=== PATIENT | female | born 1955 | race Caucasian/White ===

== ENCOUNTER → 2017-01-15 | Outpatient (CLI) | payer OTHER | END | disposition home or self-care (01) | LOC: LABWHC1 12:40 | PROVIDERS: ATTEND Internal Medicine | DX: E03.8 Other specified hypothyroidism (principal) | CPT/HCPCS: 36415; 84439; 84443; 84481; 86376; 86800 ==

== ENCOUNTER → 2017-07-11 | Outpatient (CLI) | payer OTHER ==
--- NOTE | 2017-07-11 12:17 | US ---
EXAMINATION TYPE: US thyroid st tissue head/neck DATE OF EXAM: 07/11/2017 COMPARISON: None here CLINICAL HISTORY: 61-year-old female Multinodular Goiter Non-Toxic E04.2. follow up exam, previous at [facility], on meds TECHNIQUE: Multiple sonographic images of the thyroid gland are obtained. FINDINGS: GLAND SIZE: Right Lobe: 5.0 x 1.1 x 2.0 cm Overall Parenchyma: heterogenous Left Lobe: 4.5 x 2.2 x 2.5 cm Overall Parenchyma: heterogeneous Isthmus Thickness: 0.5 cm NODULES RIGHT: # of nodules measured on right: 1 1. 1.0 X 0.9 x 1.0 cm isoechoic nodule at the lower pole with well-defined margins. This nodule is taller than wide and shows intranodular vascularity. Prior size: No prior here, biopsied October 2016 = colloid nodule per patient LEFT: # of nodules measured on left: 1 1. 3.1 X 2.2 x 2.2 cm isoechoic nodule at the mid pole with well-defined margins. This nodule is w ider than tall and shows intranodular vascularity. Prior size: No prior here, biopsied October 2016 at [facility] = colloid per patient ISTHMUS: # of nodules measured in the isthmus: 0 Bilateral neck scanned, no evidence of lymphadenopathy. IMPRESSION: 1. Borderline thyromegaly. 2. A 3.1 cm solid nodule on the left and a 1.0 cm solid nodule on the right. The patient reports that these were previously biopsied on 11/09/2016. Prior imaging is not available for review.
[2017-07-11 12:26] LABS: T4, Free (Free Thyroxine) 1.11 ng/dL (0.78-2.19)
== END | disposition home or self-care (01) ==
LOC: RADUSWWP 10:52
PROVIDERS: ATTEND Internal Medicine
DX: E04.2 Nontoxic multinodular goiter (principal); E03.8 Other specified hypothyroidism
CPT/HCPCS: 36415; 76536; 84439; 84443; 84481

== ENCOUNTER → 2018-01-16 | Outpatient (CLI) | payer OTHER ==
[2018-01-16 14:39] LABS: T4, Free (Free Thyroxine) 1.07 ng/dL (0.78-2.19)
== END | disposition home or self-care (01) ==
LOC: LABWHC1 13:31
PROVIDERS: ATTEND Internal Medicine
DX: E03.8 Other specified hypothyroidism (principal)
CPT/HCPCS: 36415; 84439; 84443; 84481

== ENCOUNTER → 2018-08-29 | Outpatient (CLI) | payer OTHER ==
--- NOTE | 2018-08-29 11:34 | US ---
EXAMINATION TYPE: US thyroid st tissue head/neck DATE OF EXAM: 08/29/2018 COMPARISON: US 2018 CLINICAL HISTORY: E04.2 MULTINODULAR GOITER. Follow up thyroid nodules, history of FNA, patient on th yroid meds GLAND SIZE: Right Lobe: 4.4 x 1.2 x 1.4 cm Overall Parenchyma: homogenous Left Lobe: 3.9 x 2.0 x 2.1 cm Overall Parenchyma: homogeneous Isthmus Thickness: 0.4 cm NODULES RIGHT: # of nodules measured on right: 2 1. 1.1 X 0.8 x 1.1 cm hyperechoic solid nodule at the lower pole with well-defined margins. This no dule is wider than tall and shows intranodular vascularity. Prior size: 1.0 x 1.0 x 0.9 cm 2. 0.8 X 0.5 x 0.6 cm isoechoic mixed nodule at the upper pole with poorly defined margins. This nod ule is wider than tall and shows no intranodular vascularity. Prior size: no previous LEFT: # of nodules measured on left: 1 1. 3.2 X 2.1 x 2.1 cm hyperechoic solid nodule at the mid pole with well-defined margins. This nodu le is wider than tall and shows intranodular vascularity. Prior size: 3.1 x 2.2 x 2.2 cm ISTHMUS: # of nodules measured in the isthmus: 0 Bilateral neck scanned, no evidence of lymphadenopathy. IMPRESSION: Nonspecific thyroid nodularity is identified.
[2018-08-29 11:52] LABS: T4, Free (Free Thyroxine) 1.16 ng/dL (0.78-2.19)
== END | disposition home or self-care (01) ==
LOC: RADUSWWP 10:30
PROVIDERS: ATTEND Internal Medicine
DX: E04.2 Nontoxic multinodular goiter (principal); E03.8 Other specified hypothyroidism
CPT/HCPCS: 36415; 76536; 84439; 84443; 84481

== ENCOUNTER → 2019-02-27 | Outpatient (CLI) | payer OTHER ==
[2019-02-27 13:04] LABS: T4, Free (Free Thyroxine) 1.11 ng/dL (0.78-2.19)
--- NOTE | 2019-02-27 13:56 | US ---
EXAMINATION TYPE: US thyroid st tissue head/neck DATE OF EXAM: 02/27/2019 COMPARISON: US 08/29/2018 and 07/11/2017 CLINICAL HISTORY: E04.2 Multinodular Goiter. Follow up thyroid nodules, history of thyroid FNA, patie nt on thyroid meds GLAND SIZE: Right Lobe: 4.9 x 1.6 x 1.3 cm Overall Parenchyma: homogenous Left Lobe: 4.1 x 2.2 x 2.3 cm Overall Parenchyma: homogeneous Isthmus Thickness: 0.5 cm NODULES RIGHT: # of nodules measured on right: 2 1. 1.2 X 0.8 x 1.1 cm hyperechoic solid nodule with hypoechoic rim at the lower pole with well-defi antoine margins. This nodule is wider than tall and shows intranodular vascularity. Prior size: 1.1 x 0.8 x 1.1 cm 2. 0.6 X 0.4 x 0.5 cm hypoechoic mixed nodule at the upper pole with poorly defined margins. This no dule is wider than tall and shows no intranodular vascularity. Prior size: 0.8 x 0.5 x 0.6 cm LEFT: # of nodules measured on left: 1 1. 3.2 X 2.0 x 2.1 cm hyperechoic solid nodule at the mid pole with well-defined margins. This nod ule is wider than tall and shows intranodular vascularity. Prior size: 3.2 x 2.1 x 2.1 cm ISTHMUS: # of nodules measured in the isthmus: 0 Bilateral neck scanned, no evidence of lymphadenopathy. IMPRESSION: Similar size of the bilateral thyroid nodules, the largest of which are stated to have been biopsied at an outside institution per the patient on exam of 07/11/2017. No new suspicious thyroid nodule.
== END | disposition home or self-care (01) ==
LOC: RADUSWWP 11:28
PROVIDERS: ATTEND Internal Medicine
DX: E04.1 Nontoxic single thyroid nodule (principal); E03.8 Other specified hypothyroidism
CPT/HCPCS: 36415; 76536; 84439; 84443; 84481

== ENCOUNTER → 2019-11-01 | Outpatient (CLI) | payer OTHER ==
[2019-11-01 12:21] LABS: T4, Free (Free Thyroxine) 1.01 ng/dL (0.78-2.19)
--- NOTE | 2019-11-01 12:28 | US ---
EXAMINATION TYPE: US thyroid st tissue head/neck DATE OF EXAM: 11/01/2019 COMPARISON: US 2019 CLINICAL HISTORY: E04.2 MNG. Thyroid nodules, history of FNA, on thyroid meds GLAND SIZE: Right Lobe: 4.8 x 1.6 x 1.2 cm Overall Parenchyma: homogenous Left Lobe: 4.1 x 2.2 x 2.2 cm Overall Parenchyma: homogeneous Isthmus Thickness: 0.4 cm NODULES RIGHT: # of nodules measured on right: 2 1. 1.1 X 0.9 x 1.1 cm hyperechoic solid nodule with hypoechoic rim at the medial inferior pole with well-defined margins. This nodule is wider than tall and shows intranodular vascularity. Prior size: 1.2 x 0.8 x 1.1 cm 2. 0.6 X 0.4 x 0.4 cm hypoechoic mixed nodule at the lateral upper pole with well-defined margins. T his nodule is wider than tall and shows no intranodular vascularity. Prior size: 0.6 x 0.4 x 0.5 cm LEFT: # of nodules measured on left: 1 1. 3.0 X 2.0 x 2.1 cm hyperechoic solid nodule at the mid inferior pole with well-defined margins. This nodule is wider than tall and shows intranodular vascularity. Prior size: 3.2 x 2.0 x 2.1 cm ISTHMUS: # of nodules measured in the isthmus: 0 Bilateral neck scanned, no evidence of lymphadenopathy. IMPRESSION: 1. Large nodule left lobe thyroid. 2. Examination appears stable from comparison
== END | disposition home or self-care (01) ==
LOC: RADUSWWP 10:56
PROVIDERS: ATTEND Internal Medicine
DX: E04.2 Nontoxic multinodular goiter (principal); E03.8 Other specified hypothyroidism
CPT/HCPCS: 76536; 84439; 84443; 84481

== ENCOUNTER → 2020-09-08 | Outpatient (CLI) | payer OTHER ==
--- NOTE | 2020-09-08 11:31 | US ---
EXAMINATION TYPE: US thyroid st tissue head/neck DATE OF EXAM: 09/08/2020 COMPARISON: NONE CLINICAL HISTORY: 64-year-old female E04.1 Nontoxic single thyroid nodule. TECHNIQUE: Multiple sonographic images of the thyroid gland are obtained. FINDINGS: GLAND SIZE: Right Lobe: 4.3 x 1.0 x 1.2 cm Overall Parenchyma: heterogenous Left Lobe: 3.9 x 2.0 x 2.2 cm Overall Parenchyma: heterogeneous Isthmus Thickness: 0.5 cm NODULES RIGHT: # of nodules measured on right: 2 1. 1.1 x 0.9 X 1.0cm, lower, solid or almost completely solid, isoechoic nodule, which is wider than tall, with smooth margins, without echogenic foci. Prior size: 1.1 X 0.9 x 1.1 cm 2. 0.4 X 0.2 x 0.4 cm, mid , hypoechoic , possibly cystic nodule, which is wider than tall, with ma rgins, without echogenic foci. Prior size:0.6 X 0.4 x 0.4 cm LEFT: # of nodules measured on left: 1 1. 3.0 X 2.1 x 2.0 cm, mid, solid or almost completely solid, hyperechoic nodule, which is wider th an tall, with margins, without echogenic foci. Prior size: 3.0 X 2.0 x 2.1 cm ISTHMUS: # of nodules measured in the isthmus: Bilateral neck scanned, no evidence of lymphadenopathy. IMPRESSION: 1. Dominant solid nodule on the right it is at the lower pole and measures 1.1 cm, unchanged. 2. Dominant solid nodule on the left measures 3.0 cm at the midpole, unchanged.
[2020-09-08 12:55] LABS: T4, Free (Free Thyroxine) 1.02 ng/dL (0.78-2.19)
== END | disposition home or self-care (01) ==
LOC: RADUSWWP 09:34
PROVIDERS: ATTEND Internal Medicine
DX: E04.2 Nontoxic multinodular goiter (principal)
CPT/HCPCS: 76536; 84439; 84443; 84481

== ENCOUNTER → 2021-03-09 | Outpatient (CLI) | payer OTHER ==
[2021-03-09 17:38] LABS: T4, Free (Free Thyroxine) 1.28 ng/dL (0.800-1.800)
== END | disposition home or self-care (01) ==
LOC: LABWHC1 09:51
PROVIDERS: ATTEND Internal Medicine
DX: E03.8 Other specified hypothyroidism (principal)
CPT/HCPCS: 36415; 84439; 84443; 84481

== ENCOUNTER → 2021-09-03 | Outpatient (CLI) | payer OTHER ==
[2021-09-03 19:26] LABS: T4, Free (Free Thyroxine) 1.3 ng/dL (0.800-1.800)
== END | disposition home or self-care (01) ==
LOC: LABWHC1 13:22
PROVIDERS: ATTEND Physician Assistant
DX: E03.8 Other specified hypothyroidism (principal)
CPT/HCPCS: 36415; 84439; 84443; 84481

== ENCOUNTER → 2021-09-03 | Outpatient (CLI) | payer OTHER ==
--- NOTE | 2021-09-04 06:29 | US ---
EXAMINATION TYPE: US thyroid st tissue head/neck DATE OF EXAM: 09/03/2021 COMPARISON: 09/08/2020 CLINICAL HISTORY: 65-year-old female E04.2 Multinodular goiter non toxic. Thyroid nodules, patient on thyroid meds, history of thyroid FNA TECHNIQUE: Multiple sonographic images of the thyroid gland are obtained. FINDINGS: GLAND SIZE: Right Lobe: 3.7 x 1.1 x 1.2 cm Overall Parenchyma: homogenous Left Lobe: 4.6 x 2.1 x 2.3 cm Overall Parenchyma: homogeneous Isthmus Thickness: 0.4 cm NODULES RIGHT: # of nodules measured on right: 1 1. 1.3 X 1.0 x 1.2 cm, lower medial, solid or almost completely solid, isoechoic nodule, which is w ider than tall, with smooth margins, without echogenic foci. Prior size: 1.1 x 0.9 x 1.0 cm LEFT: # of nodules measured on left: 1. 3.2 X 2.0 x 2.1 cm, mid mid, solid or almost completely solid, isoechoic nodule, which is wider than tall, with smooth margins, without echogenic foci. Prior size: 3.0 x 2.1 x 2.0 cm Both of these are TR 3 nodules. ISTHMUS: # of nodules measured in the isthmus: 0 Bilateral neck scanned, no evidence of lymphadenopathy. IMPRESSION: A TR3 nodule in each lobe has enlarged slightly in the interval. 1.3 x 1.2 cm on the right (versus 1. 1 x 1.0 cm, previously). 3.2 x 2.1 cm on the left (versus 3.0 x 2.1 cm, previously). If not already d one, FNA can be performed on the left. Follow-up can be performed on the right (FNA if it reaches 2.5 cm).
== END | disposition home or self-care (01) ==
LOC: RADUSWWP 14:04
PROVIDERS: ATTEND Internal Medicine
DX: E04.2 Nontoxic multinodular goiter (principal)
CPT/HCPCS: 76536

== ENCOUNTER → 2022-03-11 | Outpatient (CLI) | payer OTHER ==
[2022-03-11 12:43] LABS: T4, Free (Free Thyroxine) 1.11 ng/dL (0.78-2.19)
--- NOTE | 2022-03-11 14:21 | BD ---
EXAMINATION TYPE: Axial Bone Density DATE OF EXAM: 03/11/2022 COMPARISON: None CLINICAL HISTORY: 66 years year old Female. ICD-10 CODE: Z78.0 ASYMPTOMATIC MENOPAUSAL STATE Height: 63 Weight: 140 FRAX RISK QUESTIONS: Secondary Osteoporosis: YES 3. Menopause before 45: YES RISK FACTORS HISTORY OF: Active: YES Postmenopausal woman: COMPLETE HYST AT 42 YRS OLD Take estrogen and/or progesterone medications: YES, IN THE PAST FOR 4 YRS Hyperparathyroidism: NO Adrenal Insufficiency: NO MEDICATIONS: Thyroid Medications: YES, SYNTHROID PRODUCT FOR 8 YRS Additional Medications: VIT D AND CALCIUM, MAGNESIUM, CELEXA, CLONOPIN AT NIGHT, Additional History: THYROID, ANXIETY, RESTLESSNESS, EXAM MEASUREMENTS: Bone mineral densitometry was performed using the [employer] System. Bone mineral density as measured about the Lumbar spine is: ----- L1-L4(G/cm2): 0.945 T Score Values are as follows: ----- L1: -2.3 ----- L2: -2.1 ----- L3: -1.6 ----- L4: -2.0 ----- L1-L4: -2.0 Bone mineral density FIRST DEXA AT [facility] Bone mineral density about the R hip (g/cm2): 0.755 Bone mineral density about the L hip (g/cm2): 0.831 T Score values are as follows: -----R Neck: -2.3 -----L Neck: -1.5 -----R Total: -2.0 -----L Total: -1.4 Bone mineral density FIRST AT [facility] FRAX%s: The graph provided illustrates a 13.1% chance for a major osteoporotic fx and a 2.7% chance f or the hips probability for fx in 10 years time. IMPRESSION: Osteopenia (T Score between -2.5 and -1). There is slightly increased risk of fracture and the patient may be considered for treatment. Re-Screen 2-5 years. NOTE: T-SCORE=SD OF THE YOUNG ADULT MEAN.
== END | disposition home or self-care (01) ==
LOC: RADBDWWP 09:13
PROVIDERS: ATTEND Family Medicine
DX: M85.89 Other specified disorders of bone density and structure, multiple sites (principal); E03.8 Other specified hypothyroidism; Z78.0 Asymptomatic menopausal state
CPT/HCPCS: 77080; 84439; 84443; 84481

== ENCOUNTER → 2022-09-13 | Outpatient (CLI) | payer OTHER ==
[2022-09-13 16:01] LABS: T4, Free (Free Thyroxine) 1.26 ng/dL (0.800-1.800)
== END | disposition home or self-care (01) ==
LOC: LABWHC1 09:32
PROVIDERS: ATTEND Physician Assistant Medical
DX: E03.8 Other specified hypothyroidism (principal)
CPT/HCPCS: 36415; 84439; 84443; 84481

== ENCOUNTER → 2023-03-10 | Outpatient (CLI) | payer OTHER ==
[2023-03-10 18:43] LABS: T4, Free (Free Thyroxine) 1.25 ng/dL (0.80-1.80)
== END | disposition home or self-care (01) ==
LOC: LABWHC1 10:05
PROVIDERS: ATTEND Internal Medicine
DX: E03.8 Other specified hypothyroidism (principal)
CPT/HCPCS: 36415; 84439; 84443; 84481

== ENCOUNTER → 2023-09-12 | Outpatient (CLI) | payer OTHER ==
--- NOTE | 2023-09-12 09:59 | US ---
EXAMINATION TYPE: US thyroid st tissue head/neck DATE OF EXAM: 09/12/2023 COMPARISON: NONE CLINICAL INDICATION: Female, 67 years old with history of E04.2 NONTOXIC MULTINODULAR GOITER; F/U 2 y ears GLAND SIZE: Right Lobe: 5.1x1.3x1.1 cm Overall Parenchyma: heterogeneous Left Lobe: 3.9x2.0x2.3 cm Overall Parenchyma: homogeneous Isthmus Thickness: 0.4 cm NODULES RIGHT: # of nodules measured on right: 1 1. 1.4 X 1.2 x 1.0 cm, lower mid, solid or almost completely solid, hyperechoic nodule, which is ta ller than wide, with lobulated or irregular margins, without echogenic foci.TR5 Prior size: 1.3 x 1.0 x 1.2 cm LEFT: # of nodules measured on left: 1 1. 3.2 X 1.9 x 2.0 cm, mid mid, solid or almost completely solid, hyperechoic nodule, which is tall er than wide, with smooth margins, without echogenic foci.TR4 Moderately Suspicious: FNA if ? 1.5 cm; Follow if ? 1 cm at 1, 2, 3, and 5 y Prior size: 3.2 x 2.0 x 2.1 cm ISTHMUS: # of nodules measured in the isthmus: 0 Bilateral neck scanned, no evidence of lymphadenopathy. IMPRESSION: 1. TR5 right-sided nodule.Highly Suspicious: FNA if ? 1 cm; Follow if ? 0.5 cm annually until 5 y 2. TR4 left-sided nodule. Moderately Suspicious: FNA if ? 1.5 cm; Follow if ? 1 cm at 1, 2, 3, and 5 y 2017 ACR TI-RADS LEVEL: TR5 *Highest TI-RADS level nodule reported
[2023-09-12 15:58] LABS: T4, Free (Free Thyroxine) 1.25 ng/dL (0.80-1.80)
== END | disposition home or self-care (01) ==
LOC: RADUSWWP 09:08
PROVIDERS: ATTEND Internal Medicine
DX: E04.2 Nontoxic multinodular goiter (principal); E03.8 Other specified hypothyroidism
CPT/HCPCS: 76536; 84439; 84443; 84481

== ENCOUNTER → 2024-03-30 | Outpatient (CLI) | payer MEDICARE ==
[2024-03-30 15:34] LABS: T4, Free (Free Thyroxine) 1.24 ng/dL (0.80-1.80)
== END | disposition home or self-care (01) ==
LOC: LABWHC1 10:41
PROVIDERS: ATTEND Internal Medicine
DX: E03.8 Other specified hypothyroidism (principal)
CPT/HCPCS: 36415; 84439; 84443; 84481

== ENCOUNTER → 2024-10-01 | Outpatient (CLI) | payer MEDICARE ==
--- NOTE | 2024-10-01 15:06 | US ---
EXAMINATION TYPE: US thyroid st tissue head/neck DATE OF EXAM: 10/01/2024 COMPARISON: Multiple priors most recent 09/12/2023. CLINICAL INDICATION: Female, 68 years old with history of E04.2 NONTOXIC MULTINODULAR GOITER; Follow up nodules. On thyroid meds. TECHNIQUE: Grayscale and color Doppler imaging of the thyroid gland. FINDINGS: GLAND SIZE: Right Lobe: 4.0 x 1.4 x 1.8 cm Overall Parenchyma: homogeneous Left Lobe: 3.9 x 2.4 x 2.5 cm Overall Parenchyma: homogeneous Isthmus Thickness: 0.6 cm NODULES RIGHT: # of nodules measured on right: 1 1. 1.4 X 1.1 x 1.0 cm, lower medial, solid or almost completely solid, hyperechoic nodule, which is wider than tall, with smooth margins, without echogenic foci. Prior size: 1.4 x 1.2 x 1.0 cm TR3 LEFT: # of nodules measured on left: 1 1. 3.1 X 2.1 x 2.0 cm, mid mid, solid or almost completely solid, hyperechoic nodule, which is wide r than tall, with smooth margins, without echogenic foci. Prior size: 3.2 x 1.9 x 2.0 cm TR3 ISTHMUS: # of nodules measured in the isthmus: 0 Bilateral neck scanned, no evidence of lymphadenopathy. IMPRESSION: Bilateral TR3 thyroid nodules, the left nodule meets criteria for FNA if not already performed.. Highest TI-RADS level nodule reported: 2017 ACR TI-RADS LEVEL: TI-RADS 3 - Mildly Suspicious: Follow if > 1.5 cm, FNA if > 2.5 cm TI-RADS assessment score and recommendation for follow-up based on appropriate scoring and treatment protocols. TR3: If nodule size is ? 2.5 cm, FNA is recommended. If nodule size is ? 1.5 cm, follow-up imaging at 1, 3, and 5 years is recommended. TR4: If nodule size is ? 1.5 cm, FNA is recommended. If nodule size is ? 1.0 cm, follow-up imaging at 1, 2, 3, and 5 years is recommended. TR5: If nodule size is ? 1.0 cm, FNA is recommended. If nodule size is ? 0.5 cm, annual follow-up for up to 5 years is recommended. [email or web address] [facility], , 10/01/2024 3:04 PM
== END | disposition home or self-care (01) ==
LOC: RADUSWWP 10:00
PROVIDERS: ATTEND Internal Medicine
DX: E04.2 Nontoxic multinodular goiter (principal); E03.8 Other specified hypothyroidism
CPT/HCPCS: 76536; 84436; 84443; 84480